=== PATIENT | female | born 1965 | race Caucasian/White ===

== ENCOUNTER 2019-09-28 12:29 | Emergency (ER) | payer OTHER ==
--- NOTE | 2019-09-28 13:14 | EDM.PDOC ---
ED HPI GENERAL MEDICAL PROBLEM - General Chief Complaint: General Stated Complaint: low pottassium Time Seen by Provider: 09/28/19 13:01 Source of Information: Reports: Patient History Limitations: Reports: No Limitations - History of Present Illness INITIAL COMMENTS - FREE TEXT/NARRATIVE: Patient is a 54-year-old female who presents to the ER to have her potassium levels checked. She states that she has chronic vomiting of unknown etiology causing her to have chronically low potassium levels. She does see Maritza Gill at [facility] and was supposed to have order sent over to have her potassium checked here today. These orders however were not received. The patient has seen numerous specialists regarding her vomiting with the most recent being [facility]. She states that she is scheduled for a gastric emptying study. She states that on Monday of this week he received a 40 mEq IV infusion of potassium. Prior to this her potassium is 2.3. She did have her potassium checked yesterday at [facility] and it was still 2.3 so she received another 40 mEq transfusion. She states that she has had no vomiting for the last 2 days. She states that she is unable take oral potassium because it makes her vomit and does require IV replacement each time her potassium is low. She denies any hx of cardiac arrhythmias, but states that she has had palpitations in the past. 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: Reports: Polycystic Ovaries, , Spontaneous Musculoskeletal History: Reports: Arthritis, Other (See Below) Other Musculoskeletal History: right shoulder Neurological History: Reports: Migraines Psychiatric History: Reports: Depression Endocrine/Metabolic History: Reports: None Hematologic History: Reports: Anemia Immunologic History: Reports: None Oncologic (Cancer) History: Reports: None Dermatologic History: Reports: None - Infectious Disease History Infectious Disease History: Reports: Chicken Pox, Measles, Mumps - Past Surgical History Head Surgeries/Procedures: Reports: None Cardiovascular Surgical History: Reports: None Respiratory Surgical History: Reports: None GI Surgical History: Reports: Colonoscopy Female Surgical History: Reports: Hysterectomy, Salpingo-Oophorectomy Endocrine Surgical History: Reports: None Neurological Surgical History: Reports: None Musculoskeletal Surgical History: Reports: None Dermatological Surgical History: Reports: None Social & Family History - Family History Family Medical History: Noncontributory - Tobacco Use Smoking Status *Q: Never Smoker - Caffeine Use Caffeine Use: Reports: Tea Other Caffeine Use: rare diet pop - Recreational Drug Use Recreational Drug Use: No ED ROS GENERAL - Review of Systems Review Of Systems: See Below Constitutional: Reports: Decreased Appetite HEENT: Reports: No Symptoms Respiratory: Reports: No Symptoms Cardiovascular: Denies: Chest Pain, Palpitations Endocrine: Reports: No Symptoms GI/Abdominal: Denies: Abdominal Pain, Nausea, Vomiting : Reports: No Symptoms Musculoskeletal: Reports: No Symptoms Skin: Reports: No Symptoms Neurological: Reports: No Symptoms Psychiatric: Reports: No Symptoms Hematologic/Lymphatic: Reports: No Symptoms Immunologic: Reports: No Symptoms ED EXAM, GENERAL - Physical Exam Exam: See Below Exam Limited By: No Limitations General Appearance: Alert, WD/WN, No Apparent Distress Head: Atraumatic, Normocephalic Respiratory/Chest: No Respiratory Distress, Lungs Clear, Normal Breath Sounds, No Accessory Muscle Use, Chest Non-Tender Cardiovascular: Normal Peripheral Pulses, Regular Rate, Rhythm, No Edema, No Murmur GI/Abdominal: Normal Bowel Sounds, Soft, Non-Tender, No Distention Neurological: Alert, Oriented, Normal Cognition Psychiatric: Normal Affect, Normal Mood Skin Exam: Warm, Dry, Intact, Normal Color, No Rash Course - Vital Signs Last Recorded V/S: Last Vital Signs Temp 97.8 F 09/28/19 12:52 Pulse 75 09/28/19 12:52 Resp 16 09/28/19 12:52 BP 137/77 09/28/19 12:52 Pulse Ox 97 09/28/19 12:52 - Orders/Labs/Meds Labs: Laboratory Tests 09/28/19 09/28/19 Range/Units 13:12 13:12 Sodium 137 (136-145) mEq/L Potassium 2.3 L* (3.5-5.1) mEq/L Chloride 98 (98-107) mEq/L Carbon Dioxide 32 (21-32) mEq/L Anion Gap 9.3 (5-15) BUN 16 (7-18) mg/dL Creatinine 0.7 (0.55-1.02) mg/dL Est Cr Clr Drug Dosing 67.76 mL/min Estimated GFR (MDRD) > 60 (>60) mL/min BUN/Creatinine Ratio 22.9 H (14-18) Glucose 94 (74-106) mg/dL Calcium 8.5 (8.5-10.1) mg/dL Magnesium 1.9 (1.8-2.4) mg/dl Meds: Medications Discontinued Medications Generic Name Dose Route Start Last Admin Trade Name Freq PRN Reason Stop Dose Admin Potassium Chloride 10 meq/ 100 mls @ 100 mls/hr 09/28/19 14:00 09/28/19 17:38 Premix IV 09/28/19 17:59 100 mls/hr Q1H CAREN Administration Sodium Chloride 1,000 mls @ 100 mls/hr 09/28/19 14:27 09/28/19 14:33 Normal Saline IV 09/29/19 00:26 100 mls/hr ONETIME ONE Administration - Re-Assessments/Exams Free Text/Narrative Re-Assessment/Exam: I have ordered a BMP. Patient has had not had any nausea or vomiting for 2 days so she is not requiring any antiemetics. 09/28/19 1345 patient's potassium returned at 2.3 which is the same that it is then on Monday and Monday of this week. I have ordered a magnesium level also. We will transfuse a total of 40 mEq of KCl IV in the ER today. in discussion, the patient did state that approximately one year ago she had a similar occurrence where she required numerous potassium transfusions because her potassium levels would not go up. 09/28/19 17:58 Magnesium was normal at 1.9. I did discuss these findings with the patient. She is wondering why her potassium is not rising. Unfortunately I don't have an answer for that tonight, however I did discuss the importance of close follow -up with her primary care provider as well as her specialists at the [facility]. I did advise the patient that if she has any concerns that her potassium may still be low, she can definitely return tomorrow to have her levels rechecked. She should also contact Maritza Gill at [facility] on Monday to have her potassium level checked again, as well as her providers at the [facility]. She is in agreement with this plan of care and states that she will contact [facility] and [facility] first thing Monday. Departure - Departure Time of Disposition: 18:05 Disposition: Home, Self-Care 01 Condition: Fair Clinical Impression: Hypokalemia - Discharge Information *PRESCRIPTION DRUG MONITORING PROGRAM REVIEWED*: No *COPY OF PRESCRIPTION DRUG MONITORING REPORT IN PATIENT JOEL: No Instructions: Hypokalemia Referrals: Maritza Gill PA-C [Primary Care Provider] - Forms: ED Department Discharge Additional Instructions: You were seen in the emergency department today to have your potassium levels checked. Your potassium level prior to infusion was 2.3. Her magnesium was normal at 1.9. You did receive a total of 40 mEq of potassium while in the ER. As we discussed, I do not have an answer as to why your potassium continues to be low even after you've been not been vomiting. If you have any concerns that your potassium may continue to be low or if you would just like a potassium levels checked, you may definitely return to the emergency department tomorrow to have it rechecked. I do recommend that you contact your primary care provider, as well as your specialist at the [facility] first thing Monday to advise him of these occurrences and to have your potassium levels rechecked. If you should develop any concerning new symptoms or any worsening symptoms, please not hesitate to return to the emergency department. Sepsis Event Note - Evaluation Sepsis Screening Result: No Definite Risk - Focused Exam Date Exam was Performed: 09/29/19 Time Exam was Performed: 07:53
[2019-09-28] MEDS: Potassium Chloride 10 MEQ in Premix Bag 1 BAG IV SCH ×4 (14:17→17:38)
[2019-09-28] MEDS ORDERED: Sodium Chloride 0.9% 1,000 ML IV ONE (14:27)
== END 2019-09-28 18:54 | disposition home or self-care (01) ==
LOC: JD.ED 12:29 → EDSTATUS 12:30 → JD.ED 18:54
DX: E87.6 Hypokalemia (principal); Z88.5 Allergy status to narcotic agent; Z88.3 Allergy status to other anti-infective agents
CPT/HCPCS: 36415; 80048; 83735; 96361; 96365; 96366; 99284; J3480; J7030; 99283

== ENCOUNTER 2019-10-01 17:21 | Observation (INO) | payer OTHER ==
[2019-10-01] MEDS ORDERED: Dextrose 5%-0.9% NaCl 1,000 ML IV SCH (18:00)
--- NOTE | 2019-10-01 18:04 | EDM.PDOC ---
<Julio Cesar Meek - Last Filed: 10/02/19 06:13> ED HPI GENERAL MEDICAL PROBLEM - General Chief Complaint: General Stated Complaint: NEED BLOOD WORK Time Seen by Provider: 10/01/19 17:45 - Related Data Allergies Allergy/AdvReac Type Severity Reaction Status Date / Time codeine AdvReac Vomiting Verified 10/01/19 17:45 chlorhexi Allergy Rash Uncoded 09/28/19 12:51 Home Meds: Home Meds Cholecalciferol (Vitamin D3) [Vitamin D] 50,000 unit PO WEEKLY #12 capsule 10/02 [Rx] Magnesium Oxide [Magnesium] 400 mg PO Q12HR #2 tablet 10/02/19 [Rx] Potassium Chloride 20 meq PO DAILY #30 tablet.er 10/02/19 [Rx] Sod Phos Di, [place]/K Phos [place] [Phosphorous 250 mg Tablet] 250 mg PO Q12HR #2 tablet 10/02/19 [Rx] EKG INTERPRETATION EKG Date: 10/02/19 Time: 01:06 Rhythm: NSR Rate (Beats/Min): 60 [place]: Normal P-Wave: Present (Short [place] interval) QRS: Normal ST-T: Normal QT: Normal Comparison: No Change (03/13/2019) Course - Vital Signs Last Recorded V/S: Last Vital Signs Temp 36.8 C 10/02/19 20:04 Pulse 71 10/02/19 20:04 Resp 19 10/02/19 20:04 BP 98/76 10/02/19 22:10 Pulse Ox 94 L 10/02/19 20:04 - Orders/Labs/Meds Labs: Laboratory Tests 10/01/19 10/01/19 10/01/19 Range/Units 18:00 18:00 22:55 WBC (3.98-10.04) K/mm3 RBC (3.98-5.22) M/mm3 Hgb (11.2-15.7) gm/dl Hct (34.1-44.9) % MCV (79.4-94.8) fl MCH (25.6-32.2) pg MCHC (32.2-35.5) g/dl RDW Std Deviation (36.4-46.3) fL Plt Count (182-369) K/mm3 MPV (9.4-12.3) fl Neutrophils % (Manual) (40-60) % Band Neutrophils % (0-10) % Lymphocytes % (Manual) (20-40) % Atypical Lymphs % % Monocytes % (Manual) (2-10) % Eosinophils % (Manual) (0.7-5.8) % Basophils % (Manual) (0.1-1.2) Toxic Granulation Platelet Estimate Plt Morphology Comment RBC Morph Comment D-Dimer, Quantitative (0.19-0.50) mg/L Sodium 137 (136-145) mEq/L Potassium 2.1 L* 2.7 L (3.5-5.1) mEq/L Chloride 98 (98-107) mEq/L Carbon Dioxide 25 (21-32) mEq/L Anion Gap 16.1 H (5-15) BUN 14 (7-18) mg/dL Creatinine 1.0 (0.55-1.02) mg/dL Est Cr Clr Drug Dosing 47.89 mL/min Estimated GFR (MDRD) 58 (>60) mL/min BUN/Creatinine Ratio 14.0 (14-18) Glucose 168 H (74-106) mg/dL Lactic Acid (0.4-2.0) mmol/L Calcium 8.5 (8.5-10.1) mg/dL Phosphorus 2.8 (2.6-4.7) mg/dL Magnesium 1.7 L (1.8-2.4) mg/dl Total Bilirubin 0.2 (0.2-1.0) mg/dL AST 14 L (15-37) U/L ALT 21 (14-59) U/L Alkaline Phosphatase 103 (46-116) U/L Creatine Kinase (26-192) U/L Troponin I (0.00-0.056) ng/mL Total Protein 6.4 (6.4-8.2) g/dl Albumin 3.1 L (3.4-5.0) g/dl Globulin 3.3 gm/dL Albumin/Globulin Ratio 0.9 L (1-2) Urine Color (Yellow) Urine Appearance (Clear) Urine pH (5.0-8.0) Ur Specific [place] (1.005-1.030) Urine Protein (Negative) Urine Glucose (UA) (Negative) Urine Ketones (Negative) Urine Occult Blood (Negative) Urine Nitrite (Negative) Urine Bilirubin (Negative) Urine Urobilinogen (0.2-1.0) Ur Leukocyte Esterase (Negative) Ur Potassium Concent mEq/L 10/01/19 10/01/19 10/02/19 Range/Units 22:55 22:55 01:20 WBC 8.69 (3.98-10.04) K/mm3 RBC 3.71 L (3.98-5.22) M/mm3 Hgb 10.1 L (11.2-15.7) gm/dl Hct 30.6 L (34.1-44.9) % MCV 82.5 (79.4-94.8) fl MCH 27.2 (25.6-32.2) pg MCHC 33.0 (32.2-35.5) g/dl RDW Std Deviation 42.7 (36.4-46.3) fL Plt Count 363 (182-369) K/mm3 MPV 8.8 L (9.4-12.3) fl Neutrophils % (Manual) 64 H (40-60) % Band Neutrophils % 6 (0-10) % Lymphocytes % (Manual) 23 (20-40) % Atypical Lymphs % 0 % Monocytes % (Manual) 4 (2-10) % Eosinophils % (Manual) 0 L (0.7-5.8) % Basophils % (Manual) 3 H (0.1-1.2) Toxic Granulation 1+ slight Platelet Estimate Adequate Plt Morphology Comment Normal RBC Morph Comment Normal D-Dimer, Quantitative (0.19-0.50) mg/L Sodium (136-145) mEq/L Potassium (3.5-5.1) mEq/L Chloride (98-107) mEq/L Carbon Dioxide (21-32) mEq/L Anion Gap (5-15) BUN (7-18) mg/dL Creatinine (0.55-1.02) mg/dL Est Cr Clr Drug Dosing mL/min Estimated GFR (MDRD) (>60) mL/min BUN/Creatinine Ratio (14-18) Glucose (74-106) mg/dL Lactic Acid (0.4-2.0) mmol/L Calcium (8.5-10.1) mg/dL Phosphorus (2.6-4.7) mg/dL Magnesium (1.8-2.4) mg/dl Total Bilirubin (0.2-1.0) mg/dL AST (15-37) U/L ALT (14-59) U/L Alkaline Phosphatase (46-116) U/L Creatine Kinase 83 (26-192) U/L Troponin I < 0.017 (0.00-0.056) ng/mL Total Protein (6.4-8.2) g/dl Albumin (3.4-5.0) g/dl Globulin gm/dL Albumin/Globulin Ratio (1-2) Urine Color (Yellow) Urine Appearance (Clear) Urine pH (5.0-8.0) Ur Specific [place] (1.005-1.030) Urine Protein (Negative) Urine Glucose (UA) (Negative) Urine Ketones (Negative) Urine Occult Blood (Negative) Urine Nitrite (Negative) Urine Bilirubin (Negative) Urine Urobilinogen (0.2-1.0) Ur Leukocyte Esterase (Negative) Ur Potassium Concent mEq/L 10/02/19 10/02/19 10/02/19 Range/Units 01:20 01:28 04:30 WBC (3.98-10.04) K/mm3 RBC (3.98-5.22) M/mm3 Hgb (11.2-15.7) gm/dl Hct (34.1-44.9) % MCV (79.4-94.8) fl MCH (25.6-32.2) pg MCHC (32.2-35.5) g/dl RDW Std Deviation (36.4-46.3) fL Plt Count (182-369) K/mm3 MPV (9.4-12.3) fl Neutrophils % (Manual) (40-60) % Band Neutrophils % (0-10) % Lymphocytes % (Manual) (20-40) % Atypical Lymphs % % Monocytes % (Manual) (2-10) % Eosinophils % (Manual) (0.7-5.8) % Basophils % (Manual) (0.1-1.2) Toxic Granulation Platelet Estimate Plt Morphology Comment RBC Morph Comment D-Dimer, Quantitative 0.29 (0.19-0.50) mg/L Sodium (136-145) mEq/L Potassium (3.5-5.1) mEq/L Chloride (98-107) mEq/L Carbon Dioxide (21-32) mEq/L Anion Gap (5-15) BUN (7-18) mg/dL Creatinine (0.55-1.02) mg/dL Est Cr Clr Drug Dosing mL/min Estimated GFR (MDRD) (>60) mL/min BUN/Creatinine Ratio (14-18) Glucose (74-106) mg/dL Lactic Acid 2.4 H* 1.8 (0.4-2.0) mmol/L Calcium (8.5-10.1) mg/dL Phosphorus (2.6-4.7) mg/dL Magnesium (1.8-2.4) mg/dl Total Bilirubin (0.2-1.0) mg/dL AST (15-37) U/L ALT (14-59) U/L Alkaline Phosphatase (46-116) U/L Creatine Kinase (26-192) U/L Troponin I (0.00-0.056) ng/mL Total Protein (6.4-8.2) g/dl Albumin (3.4-5.0) g/dl Globulin gm/dL Albumin/Globulin Ratio (1-2) Urine Color (Yellow) Urine Appearance (Clear) Urine pH (5.0-8.0) Ur Specific [place] (1.005-1.030) Urine Protein (Negative) Urine Glucose (UA) (Negative) Urine Ketones (Negative) Urine Occult Blood (Negative) Urine Nitrite (Negative) Urine Bilirubin (Negative) Urine Urobilinogen (0.2-1.0) Ur Leukocyte Esterase (Negative) Ur Potassium Concent mEq/L 10/02/19 10/02/19 10/02/19 Range/Units 04:30 04:42 04:42 WBC (3.98-10.04) K/mm3 RBC (3.98-5.22) M/mm3 Hgb (11.2-15.7) gm/dl Hct (34.1-44.9) % MCV (79.4-94.8) fl MCH (25.6-32.2) pg MCHC (32.2-35.5) g/dl RDW Std Deviation (36.4-46.3) fL Plt Count (182-369) K/mm3 MPV (9.4-12.3) fl Neutrophils % (Manual) (40-60) % Band Neutrophils % (0-10) % Lymphocytes % (Manual) (20-40) % Atypical Lymphs % % Monocytes % (Manual) (2-10) % Eosinophils % (Manual) (0.7-5.8) % Basophils % (Manual) (0.1-1.2) Toxic Granulation Platelet Estimate Plt Morphology Comment RBC Morph Comment D-Dimer, Quantitative (0.19-0.50) mg/L Sodium 137 (136-145) mEq/L Potassium 2.9 L (3.5-5.1) mEq/L Chloride 102 (98-107) mEq/L Carbon Dioxide 27 (21-32) mEq/L Anion Gap 10.9 (5-15) BUN 10 (7-18) mg/dL Creatinine 0.7 (0.55-1.02) mg/dL Est Cr Clr Drug Dosing 68.42 mL/min Estimated GFR (MDRD) > 60 (>60) mL/min BUN/Creatinine Ratio 14.3 (14-18) Glucose 90 (74-106) mg/dL Lactic Acid (0.4-2.0) mmol/L Calcium 8.0 L (8.5-10.1) mg/dL Phosphorus (2.6-4.7) mg/dL Magnesium (1.8-2.4) mg/dl Total Bilirubin (0.2-1.0) mg/dL AST (15-37) U/L ALT (14-59) U/L Alkaline Phosphatase (46-116) U/L Creatine Kinase (26-192) U/L Troponin I (0.00-0.056) ng/mL Total Protein (6.4-8.2) g/dl Albumin (3.4-5.0) g/dl Globulin gm/dL Albumin/Globulin Ratio (1-2) Urine Color Light yellow (Yellow) Urine Appearance Clear (Clear) Urine pH 6.5 (5.0-8.0) Ur Specific [place] 1.020 (1.005-1.030) Urine Protein Negative (Negative) Urine Glucose (UA) Negative (Negative) Urine Ketones Negative (Negative) Urine Occult Blood Negative (Negative) Urine Nitrite Negative (Negative) Urine Bilirubin Negative (Negative) Urine Urobilinogen 0.2 (0.2-1.0) Ur Leukocyte Esterase Negative (Negative) Ur Potassium Concent 8.0 mEq/L Meds: Medications Discontinued Medications Generic Name Dose Route Start Last Admin Trade Name Freq PRN Reason Stop Dose Admin Acetaminophen 650 mg 10/02/19 09:34 10/02/19 14:23 Tylenol PO 650 mg Q4H PRN Administration Pain (Mild 1-3)/fever Dextrose/Sodium Chloride 1,000 mls @ 150 mls/hr 10/01/19 18:00 10/01/19 18:10 Dextrose 5%-Normal Saline IV 150 mls/hr ASDIRECTED CAREN Administration Potassium Chloride 10 meq/ 100 mls @ 100 mls/hr 10/01/19 18:00 10/01/19 23:48 Premix IV 10/01/19 23:59 100 mls/hr Q1H CAREN Administration Lactated Ringer's 1,000 mls @ 999 mls/hr 10/02/19 01:00 10/02/19 01:11 Ringers, Lactated IV 10/02/19 02:00 999 mls/hr .BOLUS ONE Administration Lactated Ringer's 1,000 mls @ 999 mls/hr 10/02/19 02:23 10/02/19 02:29 Ringers, Lactated IV 10/02/19 03:23 999 mls/hr .BOLUS ONE Administration Lactated Ringer's 1,000 mls @ 250 mls/hr 10/02/19 04:30 10/02/19 05:35 Ringers, Lactated IV 250 mls/hr ASDIRECTED CAREN Administration Potassium Chloride 100 meq/ 1,050 mls @ 100 mls/hr 10/02/19 15:30 10/02/19 15 :10 Lactated Ringer's IV 10/03/19 01:59 100 mls/hr ONETIME ONE Administration Lactated Ringer's 1,000 mls @ 999 mls/hr 10/02/19 15:37 10/02/19 15:49 Ringers, Lactated IV 10/02/19 16:37 Not Given .BOLUS ONE Lactated Ringer's 1,000 mls @ 100 mls/hr 10/02/19 15:46 10/02/19 15:53 Ringers, Lactated IV 10/03/19 01:45 100 mls/hr ONETIME ONE Administration Ondansetron HCl 4 mg 10/02/19 09:34 Zofran Odt PO Q6H PRN nausea, able to take PO Ondansetron HCl 4 mg 10/02/19 09:34 Zofran IV Q6H PRN Nausea/Vomiting Potassium Chloride 40 meq 10/01/19 23:34 10/01/19 23:52 Klor-Con M20 PO 10/01/19 23:35 40 meq ONETIME ONE Administration - Re-Assessments/Exams Free Text/Narrative Re-Assessment/Exam: 10/01/19 23:32 Notified by Thais PEDROZA short while ago that the patient was complaining of the feeling of swelling in her fingers with some tingling. I had Thais hold the potassium infusion until the repeat potassium level returned. It has now returned at 2.7, which is far less improvement than we were expecting. I have asked Thais PEDROZA to resume the potassium infusion, and I will also order 40 mEq of oral potassium chloride. The patient has not yet provided a urine sample for the urine potassium level. 10/02/19 01:05 Notified by Carol PEDROZA that the patient's BP had dropped to 80/51. I went to evaluate the patient. She reported that she has been experiencing left-sided chest discomfort - not a pain - since approximately 16:30 yesterday afternoon. She stated that the discomfort was constant, and she had not identified any modifiers. She denied associated symptoms, such as nausea, diaphoresis, dyspnea , or sense of impending doom. She denied having pain elsewhere. Other than feeling generally weak, she denied any recent illnesses, such as fever, cough, palpitations, abdominal pain, recent bloody bowel movements or black bowel movements, recent weight gain or weight loss, joint aches, headaches, rashes. The patient reported that she had similar chest discomfort approximately one year ago. She stated that she discussed her symptoms with her PCP, but that no medical evaluation was performed. The patient's physical exam was unremarkable. While hypokalemia can cause ECG abnormalities and cardiac dysrhythmias, it should not cause coronary spasm or chest discomfort. If the patient's chest discomfort is cardiac in etiology, it is likely independent of her hypokalemia. At present, I have ordered an ECG, a CBC, troponin, CPK (to look for evidence of rhabdomyolysis), lactic acid level, 2 sets of blood cultures, and a chest x- ray. The patient will be given a 1 L bolus of LR. 10/02/19 01:53 2-view chest radiograph reviewed. The cardiac silhouette is within normal limits. No pulmonary vascular congestion. No pleural effusions. No focal infiltrate. No pneumothorax. There is mild thoracolumbar scoliosis. Formal read per the Radiologist pending. The patient's CBC is remarkable for a H/H mildly depressed at 10.1/30.6, with the remainder of her CBC being unremarkable. Her troponin is undetectably low. Her CPK is within normal limits at 83. 10/02/19 02:08 The patient's D-dimer is within normal limits at 0.29. Her lactic acid level is elevated at 2.4. The patient's elevated lactic acid level is consistent with hyperlactatemia, not lactic acidosis, however, our sepsis protocol recommends repeating it in 3 hours. The original was drawn at 01:28; the repeat will be drawn at 04:25 10/02/19 02:23 Following a 1 L bolus of LR the patient's BP has improved, but is still somewhat low at 98/63. I have ordered a second liter bolus of LR. 10/02/19 04:16 Following a second liter of LR, the patient's BP is 83/56. I will order additional IV fluid. In addition to the repeat lactic acid level that will be drawn at 4:25, a BMP will be drawn, as well. Notified by Carol PEDROZA that the patient feels like she has to urinate, but is having difficulty. She has not urinated during her entire ED visit. Carol is going to bladder scan her, then catheterize the patient if indeed there is significant urine in the bladder. 10/02/19 04:30 The patient was able to void 250 mL, but the postvoid bladder scan found 364 mL of remaining urine. Carol PEDROZA will catheterize the patient, and a urinalysis and urine potassium level will be sent from the catheterized specimen. 10/02/19 04:47 Notified by Carol PEDROZA that she recovered about 450 mL of urine via catheterization. 10/02/19 05:57 The patient's BMP is remarkable for a potassium depressed at 2.9, with the remainder of her BMP being unremarkable. Her repeat lactic acid is now within normal limits at 1.8. Her urinalysis is unremarkable. The urine potassium is a send-out test. Results are expected by this evening. The patient's BP is still depressed at 88/51. I will admit her for further evaluation and treatment. 10/02/19 06:11 The above was stressed with the patient. She became tearful and reluctantly agreed to be admitted to the hospital. Case then discussed with Dr. Caballero at 06:08. She agreed to admit the patient. She will come to the ED to evaluate her. Departure - Departure Time of Disposition: 06:12 Disposition: Admitted As Inpatient 66 Clinical Impression: Hypokalemia, Urinary retention, Elevated lactic acid level, Hypotension - Discharge Information *PRESCRIPTION DRUG MONITORING PROGRAM REVIEWED*: Not Applicable *COPY OF PRESCRIPTION DRUG MONITORING REPORT IN PATIENT JOEL: Not Applicable Sepsis Event Note - Focused Exam Date Exam was Performed: 10/02/19 Time Exam was Performed: 06:13 <Nakul Carreno - Last Filed: 10/04/19 13:46> ED HPI GENERAL MEDICAL PROBLEM - General Source of Information: Reports: Patient History Limitations: Reports: No Limitations - History of Present Illness INITIAL COMMENTS - FREE TEXT/NARRATIVE: 54-year-old female presents to the ER at the request of walk-in clinic physician Dr. Gama. 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 She states it comes in cycles and has been problematic for many years. She has been all over the country including the [facility] for multiple investigations over the years with no bloody being able to identify what causes the instability of the vagus nerve and recurrent vomiting. Therefore her hypokalemia secondary to poor oral intake of foods and recurrent vomiting. Today her potassium is down to 2.3. She states as far she can return recollection is never had hypomagnesemia along with it. The history suggests that she probably has gastroparesis as she will often vomit up food eaten 8-10 hours prior as if it had not been digested all. I bet it. Unfortunately there are no good medications on the market that help with gastric paresis. Erythromycin is still available but most people can tolerate it due to the nausea. She believes she has been tried on a trial of regular dose Reglan tablet form and it was not helpful. Prepulsid used to be on the market and I'm not sure if there is been a replacement this medication since it was pulled off the market due to prolonged QT intervals and cardiac . It may be still available in a FDA approved program. She believes that she has been tried on potassium sparing diuretics without effect. I think that at this time that might be an alternative. Should therefore is in the ED for potassium replacement therapy. I will have a repeat chemistry panel and magnesium level done. Will receive 10 mEq of potassium per hour for 6 consecutive doses with a dosage check after the fifth dose. She's been tried on multiple doses and formulations of potassium supplementation on which most the time she vomits. Relations at home including effervescent forms of potassium chloride. Onset: Other (Chronic recurrent problem) Duration: Chronic Location: Reports: Generalized (Generalized muscle weakness. Nausea), Other ( Hypokalemia down to 2.3 today.) Quality: Reports: Other (Primarily muscle weakness) Severity: Severe Improves with: Reports: None Worsens with: Reports: None Context: Reports: Other (recurrent hypokalemia secondary to recurrent vomiting) . Denies: Activity, Exercise, Lifting, Sick Contact, Trauma Associated Symptoms: Reports: Loss of Appetite, Malaise, Nausea/Vomiting, Weakness. 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: Reports: Polycystic Ovaries, , Spontaneous Musculoskeletal History: Reports: Arthritis, Other (See Below) Other Musculoskeletal History: right shoulder Neurological History: Reports: Migraines Psychiatric History: Reports: Depression Endocrine/Metabolic History: Reports: None Hematologic History: Reports: Anemia Immunologic History: Reports: None Oncologic (Cancer) History: Reports: None Dermatologic History: Reports: None - Infectious Disease History Infectious Disease History: Reports: None - Past Surgical History Head Surgeries/Procedures: Reports: None Cardiovascular Surgical History: Reports: None Respiratory Surgical History: Reports: None GI Surgical History: Reports: Colonoscopy Female Surgical History: Reports: Hysterectomy, Salpingo-Oophorectomy Endocrine Surgical History: Reports: None Neurological Surgical History: Reports: None Musculoskeletal Surgical History: Reports: None Dermatological Surgical History: Reports: None Social & Family History - Family History Family Medical History: Noncontributory - Tobacco Use Smoking Status *Q: Never Smoker - Caffeine Use Caffeine Use: Reports: Tea Other Caffeine Use: rare diet pop - Living Situation & Occupation Living situation: Reports: Occupation: Employed ED ROS GENERAL - Review of Systems Review Of Systems: See Below Constitutional: Reports: Malaise, Weakness, Fatigue, Decreased Appetite, Weight Loss. Denies: Fever, Chills HEENT: Reports: Glasses Respiratory: Reports: No Symptoms Cardiovascular: Reports: No Symptoms Endocrine: Reports: Fatigue GI/Abdominal: Reports: Abdominal Pain (Intermittent epigastric pain), Decreased Appetite, Nausea (Neck nausea and vomiting) : Reports: Other (Decreased urinary output today.) Musculoskeletal: Reports: Muscle Pain (Generalized muscle weakness) Skin: Reports: No Symptoms Neurological: Reports: No Symptoms Psychiatric: Reports: No Symptoms Hematologic/Lymphatic: Reports: No Symptoms Immunologic: Reports: No Symptoms ED EXAM, GENERAL - Physical Exam Exam: See Below Exam Limited By: No Limitations General Appearance: Alert, WD/WN, No Apparent Distress, Other (Temperature 36.4. Heart rate is 82 and sinus respiratory 16 BP is 153/84 pulse ox is 100.) Eye Exam: Bilateral Eye: Normal Inspection Head: Atraumatic, Normocephalic Neck: Normal Inspection Respiratory/Chest: No Respiratory Distress Cardiovascular: Normal Peripheral Pulses, Regular Rate, Rhythm, No Edema, No Gallop, No Murmur Peripheral Pulses: 2+: Posterior Tibial (L), Posterior Tibial (R), Dorsalis Pedis (L), Dorsalis Pedis (R) GI/Abdominal: Normal Bowel Sounds, Soft, Non-Tender, No Organomegaly, No Mass, Pelvis Stable Extremities: Normal Inspection, Normal Range of Motion, Non-Tender, No Pedal Edema, Other (Bruises on her forearms from recent IV sticks.) Neurological: Alert, Oriented, CN II-XII Intact, Normal Cognition, Normal Gait Psychiatric: Normal Affect, Normal Mood Skin Exam: Warm, Dry, Intact, Normal Color, No Rash Course - Orders/Labs/Meds Labs: Laboratory Tests 10/01/19 10/01/19 10/01/19 Range/Units 18:00 18:00 22:55 WBC (3.98-10.04) K/mm3 RBC (3.98-5.22) M/mm3 Hgb (11.2-15.7) gm/dl Hct (34.1-44.9) % MCV (79.4-94.8) fl MCH (25.6-32.2) pg MCHC (32.2-35.5) g/dl RDW Std Deviation (36.4-46.3) fL Plt Count (182-369) K/mm3 MPV (9.4-12.3) fl Neutrophils % (Manual) (40-60) % Band Neutrophils % (0-10) % Lymphocytes % (Manual) (20-40) % Atypical Lymphs % % Monocytes % (Manual) (2-10) % Eosinophils % (Manual) (0.7-5.8) % Basophils % (Manual) (0.1-1.2) Toxic Granulation Platelet Estimate Plt Morphology Comment RBC Morph Comment D-Dimer, Quantitative (0.19-0.50) mg/L Sodium 137 (136-145) mEq/L Potassium 2.1 L* 2.7 L (3.5-5.1) mEq/L Chloride 98 (98-107) mEq/L Carbon Dioxide 25 (21-32) mEq/L Anion Gap 16.1 H (5-15) BUN 14 (7-18) mg/dL Creatinine 1.0 (0.55-1.02) mg/dL Est Cr Clr Drug Dosing 47.89 mL/min Estimated GFR (MDRD) 58 (>60) mL/min BUN/Creatinine Ratio 14.0 (14-18) Glucose 168 H (74-106) mg/dL Lactic Acid (0.4-2.0) mmol/L Calcium 8.5 (8.5-10.1) mg/dL Phosphorus 2.8 (2.6-4.7) mg/dL Magnesium 1.7 L (1.8-2.4) mg/dl Total Bilirubin 0.2 (0.2-1.0) mg/dL AST 14 L (15-37) U/L ALT 21 (14-59) U/L Alkaline Phosphatase 103 (46-116) U/L Creatine Kinase (26-192) U/L Troponin I (0.00-0.056) ng/mL Total Protein 6.4 (6.4-8.2) g/dl Albumin 3.1 L (3.4-5.0) g/dl Globulin 3.3 gm/dL Albumin/Globulin Ratio 0.9 L (1-2) Urine Color (Yellow) Urine Appearance (Clear) Urine pH (5.0-8.0) Ur Specific [place] (1.005-1.030) Urine Protein (Negative) Urine Glucose (UA) (Negative) Urine Ketones (Negative) Urine Occult Blood (Negative) Urine Nitrite (Negative) Urine Bilirubin (Negative) Urine Urobilinogen (0.2-1.0) Ur Leukocyte Esterase (Negative) Ur Potassium Concent mEq/L 10/01/19 10/01/19 10/02/19 Range/Units 22:55 22:55 01:20 WBC 8.69 (3.98-10.04) K/mm3 RBC 3.71 L (3.98-5.22) M/mm3 Hgb 10.1 L (11.2-15.7) gm/dl Hct 30.6 L (34.1-44.9) % MCV 82.5 (79.4-94.8) fl MCH 27.2 (25.6-32.2) pg MCHC 33.0 (32.2-35.5) g/dl RDW Std Deviation 42.7 (36.4-46.3) fL Plt Count 363 (182-369) K/mm3 MPV 8.8 L (9.4-12.3) fl Neutrophils % (Manual) 64 H (40-60) % Band Neutrophils % 6 (0-10) % Lymphocytes % (Manual) 23 (20-40) % Atypical Lymphs % 0 % Monocytes % (Manual) 4 (2-10) % Eosinophils % (Manual) 0 L (0.7-5.8) % Basophils % (Manual) 3 H (0.1-1.2) Toxic Granulation 1+ slight Platelet Estimate Adequate Plt Morphology Comment Normal RBC Morph Comment Normal D-Dimer, Quantitative (0.19-0.50) mg/L Sodium (136-145) mEq/L Potassium (3.5-5.1) mEq/L Chloride (98-107) mEq/L Carbon Dioxide (21-32) mEq/L Anion Gap (5-15) BUN (7-18) mg/dL Creatinine (0.55-1.02) mg/dL Est Cr Clr Drug Dosing mL/min Estimated GFR (MDRD) (>60) mL/min BUN/Creatinine Ratio (14-18) Glucose (74-106) mg/dL Lactic Acid (0.4-2.0) mmol/L Calcium (8.5-10.1) mg/dL Phosphorus (2.6-4.7) mg/dL Magnesium (1.8-2.4) mg/dl Total Bilirubin (0.2-1.0) mg/dL AST (15-37) U/L ALT (14-59) U/L Alkaline Phosphatase (46-116) U/L Creatine Kinase 83 (26-192) U/L Troponin I < 0.017 (0.00-0.056) ng/mL Total Protein (6.4-8.2) g/dl Albumin (3.4-5.0) g/dl Globulin gm/dL Albumin/Globulin Ratio (1-2) Urine Color (Yellow) Urine Appearance (Clear) Urine pH (5.0-8.0) Ur Specific [place] (1.005-1.030) Urine Protein (Negative) Urine Glucose (UA) (Negative) Urine Ketones (Negative) Urine Occult Blood (Negative) Urine Nitrite (Negative) Urine Bilirubin (Negative) Urine Urobilinogen (0.2-1.0) Ur Leukocyte Esterase (Negative) Ur Potassium Concent mEq/L 10/02/19 10/02/19 10/02/19 Range/Units 01:20 01:28 04:30 WBC (3.98-10.04) K/mm3 RBC (3.98-5.22) M/mm3 Hgb (11.2-15.7) gm/dl Hct (34.1-44.9) % MCV (79.4-94.8) fl MCH (25.6-32.2) pg MCHC (32.2-35.5) g/dl RDW Std Deviation (36.4-46.3) fL Plt Count (182-369) K/mm3 MPV (9.4-12.3) fl Neutrophils % (Manual) (40-60) % Band Neutrophils % (0-10) % Lymphocytes % (Manual) (20-40) % Atypical Lymphs % % Monocytes % (Manual) (2-10) % Eosinophils % (Manual) (0.7-5.8) % Basophils % (Manual) (0.1-1.2) Toxic Granulation Platelet Estimate Plt Morphology Comment RBC Morph Comment D-Dimer, Quantitative 0.29 (0.19-0.50) mg/L Sodium (136-145) mEq/L Potassium (3.5-5.1) mEq/L Chloride (98-107) mEq/L Carbon Dioxide (21-32) mEq/L Anion Gap (5-15) BUN (7-18) mg/dL Creatinine (0.55-1.02) mg/dL Est Cr Clr Drug Dosing mL/min Estimated GFR (MDRD) (>60) mL/min BUN/Creatinine Ratio (14-18) Glucose (74-106) mg/dL Lactic Acid 2.4 H* 1.8 (0.4-2.0) mmol/L Calcium (8.5-10.1) mg/dL Phosphorus (2.6-4.7) mg/dL Magnesium (1.8-2.4) mg/dl Total Bilirubin (0.2-1.0) mg/dL AST (15-37) U/L ALT (14-59) U/L Alkaline Phosphatase (46-116) U/L Creatine Kinase (26-192) U/L Troponin I (0.00-0.056) ng/mL Total Protein (6.4-8.2) g/dl Albumin (3.4-5.0) g/dl Globulin gm/dL Albumin/Globulin Ratio (1-2) Urine Color (Yellow) Urine Appearance (Clear) Urine pH (5.0-8.0) Ur Specific [place] (1.005-1.030) Urine Protein (Negative) Urine Glucose (UA) (Negative) Urine Ketones (Negative) Urine Occult Blood (Negative) Urine Nitrite (Negative) Urine Bilirubin (Negative) Urine Urobilinogen (0.2-1.0) Ur Leukocyte Esterase (Negative) Ur Potassium Concent mEq/L 10/02/19 10/02/19 10/02/19 Range/Units 04:30 04:42 04:42 WBC (3.98-10.04) K/mm3 RBC (3.98-5.22) M/mm3 Hgb (11.2-15.7) gm/dl Hct (34.1-44.9) % MCV (79.4-94.8) fl MCH (25.6-32.2) pg MCHC (32.2-35.5) g/dl RDW Std Deviation (36.4-46.3) fL Plt Count (182-369) K/mm3 MPV (9.4-12.3) fl Neutrophils % (Manual) (40-60) % Band Neutrophils % (0-10) % Lymphocytes % (Manual) (20-40) % Atypical Lymphs % % Monocytes % (Manual) (2-10) % Eosinophils % (Manual) (0.7-5.8) % Basophils % (Manual) (0.1-1.2) Toxic Granulation Platelet Estimate Plt Morphology Comment RBC Morph Comment D-Dimer, Quantitative (0.19-0.50) mg/L Sodium 137 (136-145) mEq/L Potassium 2.9 L (3.5-5.1) mEq/L Chloride 102 (98-107) mEq/L Carbon Dioxide 27 (21-32) mEq/L Anion Gap 10.9 (5-15) BUN 10 (7-18) mg/dL Creatinine 0.7 (0.55-1.02) mg/dL Est Cr Clr Drug Dosing 68.42 mL/min Estimated GFR (MDRD) > 60 (>60) mL/min BUN/Creatinine Ratio 14.3 (14-18) Glucose 90 (74-106) mg/dL Lactic Acid (0.4-2.0) mmol/L Calcium 8.0 L (8.5-10.1) mg/dL Phosphorus (2.6-4.7) mg/dL Magnesium (1.8-2.4) mg/dl Total Bilirubin (0.2-1.0) mg/dL AST (15-37) U/L ALT (14-59) U/L Alkaline Phosphatase (46-116) U/L Creatine Kinase (26-192) U/L Troponin I (0.00-0.056) ng/mL Total Protein (6.4-8.2) g/dl Albumin (3.4-5.0) g/dl Globulin gm/dL Albumin/Globulin Ratio (1-2) Urine Color Light yellow (Yellow) Urine Appearance Clear (Clear) Urine pH 6.5 (5.0-8.0) Ur Specific [place] 1.020 (1.005-1.030) Urine Protein Negative (Negative) Urine Glucose (UA) Negative (Negative) Urine Ketones Negative (Negative) Urine Occult Blood Negative (Negative) Urine Nitrite Negative (Negative) Urine Bilirubin Negative (Negative) Urine Urobilinogen 0.2 (0.2-1.0) Ur Leukocyte Esterase Negative (Negative) Ur Potassium Concent 8.0 mEq/L Meds: Medications Discontinued Medications Generic Name Dose Route Start Last Admin Trade Name Freq PRN Reason Stop Dose Admin Acetaminophen 650 mg 10/02/19 09:34 10/02/19 14:23 Tylenol PO 650 mg Q4H PRN Administration Pain (Mild 1-3)/fever Dextrose/Sodium Chloride 1,000 mls @ 150 mls/hr 10/01/19 18:00 10/01/19 18:10 Dextrose 5%-Normal Saline IV 150 mls/hr ASDIRECTED CAREN Administration Potassium Chloride 10 meq/ 100 mls @ 100 mls/hr 10/01/19 18:00 10/01/19 23:48 Premix IV 10/01/19 23:59 100 mls/hr Q1H CAREN Administration Lactated Ringer's 1,000 mls @ 999 mls/hr 10/02/19 01:00 10/02/19 01:11 Ringers, Lactated IV 10/02/19 02:00 999 mls/hr .BOLUS ONE Administration Lactated Ringer's 1,000 mls @ 999 mls/hr 10/02/19 02:23 10/02/19 02:29 Ringers, Lactated IV 10/02/19 03:23 999 mls/hr .BOLUS ONE Administration Lactated Ringer's 1,000 mls @ 250 mls/hr 10/02/19 04:30 10/02/19 05:35 Ringers, Lactated IV 250 mls/hr ASDIRECTED CAREN Administration Potassium Chloride 100 meq/ 1,050 mls @ 100 mls/hr 10/02/19 15:30 10/02/19 15 :10 Lactated Ringer's IV 10/03/19 01:59 100 mls/hr ONETIME ONE Administration Lactated Ringer's 1,000 mls @ 999 mls/hr 10/02/19 15:37 12/18/19 15:49 Ringers, Lactated IV 10/02/19 16:37 Not Given .BOLUS ONE Lactated Ringer's 1,000 mls @ 100 mls/hr 10/02/19 15:46 10/02/19 15:53 Ringers, Lactated IV 10/03/19 01:45 100 mls/hr ONETIME ONE Administration Ondansetron HCl 4 mg 10/02/19 09:34 Zofran Odt PO Q6H PRN nausea, able to take PO Ondansetron HCl 4 mg 10/02/19 09:34 Zofran IV Q6H PRN Nausea/Vomiting Potassium Chloride 40 meq 10/01/19 23:34 10/01/19 23:52 Klor-Con M20 PO 10/01/19 23:35 40 meq ONETIME ONE Administration - Radiology Interpretation Free Text/Narrative:: 54-year-old female presents to the ED at the request of her physician Dr. Gama at the walk-in clinic at [facility]. Patient's potassium level today is down to 2.3. Apparently was 2.7 yesterday but she hasn't been able to keep down any food. Chronic history of recurrent vomiting almost on a daily basis for many years. History suggests that she likely has a gastroparesis and she is not diabetic. For example she ate a fish sandwich about 5:30 last night for supper and about 3:30 this morning it came back up and looked like it had not been digested all. He has seen numerous gastroenterologists over the last last 10-15 years and no one has been able to shed light or help her with her problem. Therefore the cause of her hypokalemia is because she can't take enough in and recurrent vomiting causing losses. His is a cyclical problem as hypokalemia in itself causes nausea and vomiting. Dr. Gama did sent across an ECG done from today which shows sinus rhythm at 66/m suspect right atrial enlargement and perhaps an early repolarization pattern. QTc interval is normal and serum magnesium was not done today. 3 days ago in the ED was 1.9. Plan will be to use a large vein and give her D5 normal saline at 150 mils per hour with 10 mg of KCl per hour for 6 consecutive hours to get her potassium back up to normal. Just potassium check after the fifth dose of potassium is been given intravenously. He would be my suggestion to try a trial of potassium sparing diuretic such as amiloride 5-10 mg once daily probably at bedtime so that has a better chance of staying down. She does have a follow-up appointment next week with hourly caregiver in [facility]. - Re-Assessments/Exams Free Text/Narrative Re-Assessment/Exam: 10/01/19 19:34 Chemistry is back shows a sodium of 137 potassium actually at 2.1. Chloride is 98 with a bicarbonate of 25. Anion gap is 16.1. BUN is 14 with a creatinine of 1.0. GFR is 58. Glucose is 168. Calcium is 8.5. Phosphorus is 2.8. Magnesium is slightly low at 1.7. Urobilinogen is 0.2 liver function is normal albumin fraction is 3.1 with a total protein of 6.4. 10/01/19 19:34 Care will be transferred to Dr. Meek as it is change of shift. I have ordered a serum potassium level at 2300 hrs. to see where she is at that time. Departure - Departure Condition: Fair - Discharge Information *PRESCRIPTION DRUG MONITORING PROGRAM REVIEWED*: Not Applicable *COPY OF PRESCRIPTION DRUG MONITORING REPORT IN PATIENT JOEL: Not Applicable Sepsis Event Note - Evaluation Sepsis Screening Result: No Definite Risk - Focused Exam Date Exam was Performed: 10/04/19 Time Exam was Performed: 13:37
[2019-10-01] MEDS: Potassium Chloride 10 MEQ in Premix Bag 1 BAG IV SCH ×6 (18:11→23:48)
[2019-10-01] MEDS ORDERED: Potassium Chloride 20 MEQ Tab.ER PO ONE (23:34)
[2019-10-02] MEDS ORDERED: Lactated Ringers 1,000 ML IV ONE ×4 (01:00→15:46)
[2019-10-02] MEDS ORDERED: Lactated Ringers 1,000 ML IV SCH (04:30)
--- NOTE | 2019-10-02 07:59 | CR ---
Chest: Two views of the chest were obtained. Comparison: No prior chest x-ray. Heart size and mediastinum are normal. Lungs are clear. Bony structures appear within normal limits for the patient's age. Lungs appear slightly hyperinflated. Impression: 1. Possible emphysematous change. Please correlate if patient is a smoker. 2. Nothing acute is otherwise seen on two-view chest x-ray. Diagnostic code #2 This report was dictated in [place] [employer] Time
[2019-10-02] MEDS ORDERED: Ondansetron 4 MG Tab.DIS PO PRN (09:34)
[2019-10-02] MEDS ORDERED: Ondansetron 4 MG/2 ML SDV IV PRN (09:34)
[2019-10-02] MEDS ORDERED: Acetaminophen 325 MG Tab PO PRN (09:34)
--- NOTE | 2019-10-02 15:27 | NM ---
Addendum: Chest x-ray report does not belong to this patient. Following is the corrected dictation in its entirety. Gastric emptying study Technique: 1.1 mCi of technetium 99m sulfur colloid was mixed into 1 scrambled egg. Mixture was given with 3 ounces of water. Scintigraphic images obtained over the upper abdomen. Findings: T 1/2 is 40 minutes. Gastric emptying is normal. Impression: 1. Normal gastric emptying. Diagnostic code #1 This report was dictated in [facility] Time --- Addendum1 above dictated on [10/02/2019 14:58] by [Vineet Trejo Hilton J.] --- --- Addendum1 above signed on [10/02/2019 15:22] by [Vineet Trejo Hilton J.] --- --- Original report below dictated on [10/02/2019 14:06] by [Vineet Trejo, Sanket Henderson] --- --- Original report below signed on [10/02/2019 14:53] by [Vineet Trejo, Sanket Henderson] --- Chest: Two views of the chest were obtained. Comparison: No prior chest x-ray. Heart size and mediastinum are normal. Lungs are clear but slightly hyperinflated. Bony structures show minimal scoliosis within the spine. Impression: 1. Possible emphysematous change. Please correlate if patient is a smoker. 2. Nothing acute is otherwise seen on two-view chest x-ray. Diagnostic code #2 This report was dictated in [facility] --- Addendum1 signed ---
[2019-10-02] MEDS ORDERED: LACTATED RINGERS IV ONE (15:30)
[2019-10-02] MEDS ORDERED: POTASSIUM CHLORIDE IV ONE (15:30)
--- NOTE | 2019-10-02 15:37 | PCM.HP.2 ---
H&P History of Present Illness - General Date of Service: 10/02/19 Admit Problem/Dx: Admission Diagnosis/Problem Admission Diagnosis/Problem Hypokalemia - History of Present Illness Initial Comments - Free Text/Narative: 54-year-old female presents to the ER at the request of walk-in clinic physician Dr. Gama. History of chronic hypokalemia secondary to recurrent nausea and vomiting for 2 years. She is getting worked up as an outpatient. States she also is getting infusions of KCl as an outpatient without improvement of levels most recently on Mon-Mon and Sat when she got 40mEq Headache Pain Score (Numeric/FACES): 7 - Related Data Allergies/Adverse Reactions: Allergies Allergy/AdvReac Type Severity Reaction Status Date / Time codeine AdvReac Vomiting Verified 10/01/19 17:45 chlorhexi Allergy Rash Uncoded 09/28/19 12:51 Past Medical History HEENT History: Reports: Impaired Vision Cardiovascular History: Reports: Heart Murmur, Other (See Below) Other Cardiovascular History: chronic hypokalemia, chronic low hemoglobin Respiratory History: Reports: Pneumonia, Recurrent Gastrointestinal History: Reports: Chronic Constipation, Other (See Below) Genitourinary History: Reports: None RECREATION ACTIVITIES COORDINATOR History: Reports: Polycystic Ovaries, , Spontaneous Musculoskeletal History: Reports: Osteoporosis, Other (See Below) Other Musculoskeletal History: right shoulder pain- should start physical, broken foot R , broken ankle Neurological History: Reports: Migraines Psychiatric History: Reports: Depression Endocrine/Metabolic History: Reports: None Hematologic History: Reports: Anemia Immunologic History: Reports: None Oncologic (Cancer) History: Reports: None Dermatologic History: Reports: None - Infectious Disease History Infectious Disease History: Reports: None - Past Surgical History Head Surgeries/Procedures: Reports: None Cardiovascular Surgical History: Reports: None Respiratory Surgical History: Reports: None GI Surgical History: Reports: Colonoscopy Other GI Surgeries/Procedures: 4 colonoscopy in last 2 yrs, endoscopy x 4, chronic vomiting - 5 years Female Surgical History: Reports: Hysterectomy, Salpingo-Oophorectomy Endocrine Surgical History: Reports: None Neurological Surgical History: Reports: None Musculoskeletal Surgical History: Reports: None Dermatological Surgical History: Reports: None Social & Family History - Family History Family Medical History: Noncontributory - Tobacco Use Smoking Status *Q: Former Smoker Years of Tobacco use: 30 Used Tobacco, but Quit: Yes Month/Year Tobacco Last Used: 2016 - Caffeine Use Caffeine Use: Reports: Soda Other Caffeine Use: 2-3 per day - Recreational Drug Use Recreational Drug Use: No - Living Situation & Occupation Living situation: Reports: Occupation: Employed H&P Review of Systems - Review of Systems: Review Of Systems: See Below General: Reports: Weakness, Fatigue, Weight Loss. Denies: Fever, Chills, Malaise, Night Sweats, Diaphoresis, Decreased Appetite, Weight Gain HEENT: Denies: Post Nasal Drip, Sinus Congestion, Sore Throat, Vertigo, Visual Changes Pulmonary: Denies: Shortness of Breath, Wheezing, Pleuritic Chest Pain, Cough, Sputum, Hemoptysis Cardiovascular: Denies: Chest Pain, Palpitations, Dyspnea on Exertion, Orthopnea , PND, Edema, Lightheadedness, Syncope, Claudication, Blood Pressure Problem Gastrointestinal: Reports: Abdominal Pain, Decreased Appetite, Nausea, Vomiting. Denies: Anorexia, Black Stool, Bloody Stool, Constipation, Diarrhea, Difficulty Swallowing, Distension Genitourinary: Denies: Dysuria, Frequency, Burning, Pain, Urgency Musculoskeletal: Denies: Neck Pain, Shoulder Pain, Arm Pain, Back Pain, Hand Pain, Leg Pain, Foot Pain, Joint Pain, Joint Swelling, Muscle Pain, Muscle Stiffness Skin: Denies: Cyanosis, Jaundice, Mottled, Pallor Psychiatric: Denies: Confusion, Depression, Mood Lability, Anxiety Neurological: Denies: Confusion, Dizziness, Headache, Numbness, Paresthesia, Seizure, Syncope, Tingling, Tremors, Trouble Speaking Exam - Exam Exam: See Below - Vital Signs Vital Signs: Last Vital Signs Temp 98.1 F 10/02/19 10:39 Pulse 53 L 10/02/19 10:39 Resp 17 10/02/19 10:39 BP 94/27 L 10/02/19 10:39 Pulse Ox 94 L 10/02/19 10:39 Weight: 53.161 kg - Exam General: Alert, Oriented, Cooperative. No: Mild Distress HEENT: Conjunctiva Clear, EACs Clear, EOMI, Mucosa Moist & [place], Glasses Neck: Supple, +2 Carotid Pulse wo Bruit. No: Lymphadenopathy Lungs: Clear to Auscultation, Normal Respiratory Effort. No: Crackles, Rales, Rhonchi, Wheezing Cardiovascular: Regular Rate, Regular Rhythm. No: Systolic Murmur, Diastolic Murmur, Rubs, Gallop/S3, Gallop/S4 GI/Abdominal Exam: Normal Bowel Sounds, Soft, Non-Tender, No Organomegaly Extremities: Normal Inspection, No Pedal Edema, Normal Capillary Refill Peripheral Pulses: 2+: Carotid (L), Carotid (R), Radial (L), Radial (R), Dorsalis Pedis (L), Dorsalis Pedis (R) Skin: Warm, Dry - Patient Data Result Diagrams: 10/02/19 01:20 10/02/19 10:00 Sepsis Event Note - Evaluation Sepsis Screening Result: No Definite Risk - Focused Exam Vital Signs: Vital Signs Temp Pulse Resp BP Pulse Ox 10/02/19 10:39 98.1 F 53 L 17 94/27 L 93 L Date Exam was Performed: 10/02/19 Time Exam was Performed: 18:22 - Problem List (1) Hypokalemia SNOMED Code(s): 12106900 ICD Code: E87.6 - HYPOKALEMIA Status: Acute Current Visit: Yes (2) Hypotension SNOMED Code(s): 12674690 ICD Code: I95.9 - HYPOTENSION, UNSPECIFIED Status: Acute Current Visit: Yes (3) Hypomagnesemia SNOMED Code(s): 318120185 ICD Code: E83.42 - HYPOMAGNESEMIA Status: Acute Current Visit: Yes (4) Chest discomfort SNOMED Code(s): 727857777 ICD Code: R07.89 - OTHER CHEST PAIN Status: Acute Current Visit: Yes (5) Nausea and vomiting SNOMED Code(s): 64799830 ICD Code: R11.2 - NAUSEA WITH VOMITING, UNSPECIFIED Status: Acute Current Visit: No Qualifiers: Vomiting type: unspecified Vomiting Intractability: intractable Qualified Code(s): R11.2 - Nausea with vomiting, unspecified (6) Elevated lactic acid level SNOMED Code(s): 8996710 ICD Code: R79.89 - OTHER SPECIFIED ABNORMAL FINDINGS OF BLOOD CHEMISTRY Status: Acute Current Visit: Yes (7) Normochromic normocytic anemia SNOMED Code(s): 17002224 ICD Code: D64.9 - ANEMIA, UNSPECIFIED Status: Acute Current Visit: Yes (8) Urinary retention SNOMED Code(s): 866781414 ICD Code: R33.9 - RETENTION OF URINE, UNSPECIFIED Status: Acute Current Visit: Yes (9) Hypoalbuminemia SNOMED Code(s): 180681776 ICD Code: E88.09 - OTH DISORDERS OF PLASMA-PROTEIN METABOLISM, NEC Status: Acute Current Visit: Yes Problem List Initiated/Reviewed/Updated: Yes Assessment/Plan Comment:: Hypokalemia Chronic nausea and vomiting, possibly cyclic Hypotension Hypomagnesemia Chronic problem, >2 years Replaced intermittently as an outpatient Last replacements were Mon-Mon-Sat last week, 40mEq each time Being worked up as an outpatient, nephrology stated - Etiology is from chronic upper GI loss - Found patient to have hypochloremic metabolic acidosis compatible with GI loss - Recommended outpatient replacement As per patient she is pending a gastric emptying study and an evaluation by gastroenterology in [place] this Monday Magnesium replaced in ED PLAN - Repeat level K, Mg and Pi - Replace as needed - Gastric emptying study - Aldosterone level - Continue IVF Hypotension, orthostatic Chest discomfort Elevated lactic acid level Admission BP 153/84 with sudden drop to 80/51 + orthostatic VS Drop in BP associated with chest discomfort described as chronic by patient Given IVF in ED with minimal improvement Lactic acid in ED 2.4 with normal repeat PLAN - Continue management as per problem #1 Urinary retention Voiding minimal urine after volume repletion After 2L had void of 250ml--> bladder scan--> 360mL--> Straight cath--> 450mL PLAN - Urology follow up if she has another episode Normocytic normochromic anemia Likely secondary to chronic malnutrition Unlikely 2/2 hemorrhage PLAN - B12, folic acid, ferritin level - Reticulocyte count Hypoalbuminemia Likely 2/2 decreased oral intake and chronic nausea and vomiting PLAN - Prealbumin level PROPHYLAXIS DVT- not indicated GI- not indicated CODE STATUS: FULL CODE DISPOSITION: Patient will be admitted under observation for KCl and volume repletion with monitorization. Discharge likely in the next 24-48 hours to follow up with specialists as an outpatient.
[2019-10-02 20:39] LABS: VITAMIN D,25-HYDROXY 5.9 ng/ml (30.0-100.0)
--- NOTE | 2019-10-02 21:13 | PCM.DCSUM1 ---
Discharge Summary - Hospital Course HPI Initial Comments: 54-year-old female presents to the ER at the request of walk-in clinic physician Dr. Gama. History of chronic hypokalemia secondary to recurrent nausea and vomiting for 2 years. She is getting worked up as an outpatient. States she also is getting infusions of KCl as an outpatient without improvement of levels most recently on Mon-Mon and Sat when she got 40mEq Diagnosis: Stroke: No - Discharge Data Discharge Date: 10/02/19 Discharge Disposition: Home, Self-Care 01 Condition: Good - Referral to Home Health Primary Care Physician: LANDEN Kilgore - Discharge Diagnosis/Problem(s) (1) Hypokalemia SNOMED Code(s): 95238697 ICD Code: E87.6 - HYPOKALEMIA Status: Acute Current Visit: Yes (2) Hypotension SNOMED Code(s): 99973299 ICD Code: I95.9 - HYPOTENSION, UNSPECIFIED Status: Acute Current Visit: Yes (3) Hypomagnesemia SNOMED Code(s): 275261603 ICD Code: E83.42 - HYPOMAGNESEMIA Status: Acute Current Visit: Yes (4) Chest discomfort SNOMED Code(s): 775067253 ICD Code: R07.89 - OTHER CHEST PAIN Status: Acute Current Visit: Yes (5) Nausea and vomiting SNOMED Code(s): 14068898 ICD Code: R11.2 - NAUSEA WITH VOMITING, UNSPECIFIED Status: Acute Current Visit: No Qualifiers: Vomiting type: unspecified Vomiting Intractability: intractable Qualified Code(s): R11.2 - Nausea with vomiting, unspecified (6) Elevated lactic acid level SNOMED Code(s): 4815216 ICD Code: R79.89 - OTHER SPECIFIED ABNORMAL FINDINGS OF BLOOD CHEMISTRY Status: Acute Current Visit: Yes (7) Normochromic normocytic anemia SNOMED Code(s): 72548556 ICD Code: D64.9 - ANEMIA, UNSPECIFIED Status: Acute Current Visit: Yes (8) Urinary retention SNOMED Code(s): 883035634 ICD Code: R33.9 - RETENTION OF URINE, UNSPECIFIED Status: Acute Current Visit: Yes (9) Hypoalbuminemia SNOMED Code(s): 683155173 ICD Code: E88.09 - OTH DISORDERS OF PLASMA-PROTEIN METABOLISM, NEC Status: Acute Current Visit: Yes - Patient Summary/Data Hospital Course: Chronic problem, >2 years Replaced intermittently as an outpatient Last replacements were Mon-Mon-Sat last week, 40mEq each time Being worked up as an outpatient, nephrology stated - Etiology is from chronic upper GI loss - Found patient to have hypochloremic metabolic acidosis compatible with GI loss - Recommended outpatient replacement As per patient she is pending a gastric emptying study and an evaluation by gastroenterology in [place] this Monday Magnesium replaced in ED Given 60mEq of KCl in the ED with minimal improvement Admitted on LR with KCl Gastric emptying study reported within normal limits. Discharge labs K- 3.6 Pi- 2.5 Mg- 1.7 Discharged on KCl 20mEq tablets, once a day Mg sulfate 400mg x 2 doses Phosphorus 250mg x 2 doses She will need repeat electrolytes in 3-5 days. - Patient Instructions Diet: Usual Diet as Tolerated - Discharge Plan *PRESCRIPTION DRUG MONITORING PROGRAM REVIEWED*: Not Applicable *COPY OF PRESCRIPTION DRUG MONITORING REPORT IN PATIENT JOEL: Not Applicable Prescriptions/Med Rec: Magnesium Oxide [Magnesium] 400 mg PO Q12HR #2 tablet Sod Phos Di, [place]/K Phos [place] [Phosphorous 250 mg Tablet] 250 mg PO Q12HR #2 tablet Potassium Chloride 20 meq PO DAILY #30 tablet.er Home Medications: Home Meds Magnesium Oxide [Magnesium] 400 mg PO Q12HR #2 tablet 10/02/19 [Rx] Potassium Chloride 20 meq PO DAILY #30 tablet.er 10/02/19 [Rx] Sod Phos Di, [place]/K Phos [place] [Phosphorous 250 mg Tablet] 250 mg PO Q12HR #2 tablet 10/02/19 [Rx] Oxygen Therapy Mode: Room Air Referrals: Maritza Gill PA-C [Primary Care Provider] - (Please follow up with your primary care provider within 7-10 days. ) - Discharge Summary/Plan Comment DC Time >30 min.: Yes (45min) - General Info Date of Service: 10/02/19 Subjective Update: Feeling ok No more nausea No dizziness - Patient Data Vitals - Most Recent: Last Vital Signs Temp 98.2 F 10/02/19 20:04 Pulse 71 10/02/19 20:04 Resp 19 10/02/19 20:04 BP 92/52 L 10/02/19 20:04 Pulse Ox 94 L 10/02/19 20:04 Orthostatic Blood Pressure [ 88/34 Supine] Orthostatic Blood Pressure [ 87/58 Sitting] Orthostatic Blood Pressure [ 99/63 Standing] Weight - Most Recent: 53.161 kg - Exam General: Reports: Alert, Oriented, Cooperative, No Acute Distress HEENT: Reports: Pupils Equal, Pupils Reactive, EOMI, Mucous Membr. Moist/[place] Neck: Reports: Supple, Trachea Midline, No JVD, No Thyromegaly Lungs: Reports: Clear to Auscultation, Normal Respiratory Effort. Denies: Crackles, Rales, Rhonchi, Wheezing Cardiovascular: Reports: Regular Rate, Regular Rhythm, Murmurs. Denies: Gallops , Rubs GI/Abdominal Exam: Normal Bowel Sounds, Soft, Non-Tender, No Organomegaly Back Exam: Reports: Normal Inspection
== END 2019-10-02 22:22 | disposition home or self-care (01) ==
LOC: JD.ED 17:21 → JD.MS 10-02 09:34
PROVIDERS: ADMIT Internal Medicine; ATTEND Internal Medicine
DX: E87.6 Hypokalemia (principal); E83.42 Hypomagnesemia; E87.2 Acidosis; E88.09 Other disorders of plasma-protein metabolism, not elsewhere classified; I95.1 Orthostatic hypotension; D64.9 Anemia, unspecified; R11.2 Nausea with vomiting, unspecified; R33.9 Retention of urine, unspecified; R07.89 Other chest pain; Z88.5 Allergy status to narcotic agent; Z88.3 Allergy status to other anti-infective agents; Z87.891 Personal history of nicotine dependence; Z79.899 Other long term (current) drug therapy
CPT/HCPCS: 36415; 51701; 51798; 71046; 78264; 80048; 80053; 81003; 82088; 82306; 82550; 82607; 82728; 82746; 83605; 83735; 84100; 84132; 84133; 84134; 84484; 85007; 85027; 85045; 85379; 87040; 93005; 93306; 96361; 96365; 96366; 99285; A9270; A9541; J3480; J7042; J7120; G0378